=== PATIENT | male | born 1975 ===

== ENCOUNTER 2021-01-09 22:18 | Emergency (ER) | payer OTHER ==
[2021-01-09] MEDS ORDERED: Lidocaine 1% 20 ML MDV INFILT ONE (22:19)
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
[2021-01-09] MEDS ORDERED: Sodium Chloride 0.9% 1,000 ML IV ONE (22:57)
[2021-01-10] MEDS ORDERED: Ketorolac 30 MG/ML SDV IVPUSH ONE (00:12)
== END 2021-01-10 02:20 | disposition home or self-care (01) ==
LOC: FB.ED 22:18
DX: S01.81XA Laceration without foreign body of other part of head, initial encounter (principal); V49.9XXA Car occupant (driver) (passenger) injured in unspecified traffic accident, initial encounter; Y92.410 Unspecified street and highway as the place of occurrence of the external cause
CPT/HCPCS: 12013; 36415; 70450; 70486; 72125; 80053; 80307; 85025; 96374; 99284; J1885; J7030